=== PATIENT | female | born 1955 | race Caucasian/White ===

== ENCOUNTER → 2018-12-29 | Outpatient (CLI) | payer OTHER ==
[~2018-12-29] MED LIST: FISH OIL 1,001000 M2 PO; FLEXERIL PO; GLUCOPHAGE500 MG PO; HYDROCODONE-IB1 EACH PO; HYDROXYZINE HCL10 M2 PO; LOVASTAT40 PO; MOBIC15 MG; NORCO 5-325 TA1 EACH PO; PRESERVISION T1 EACH PO; PROZAC 20 MG20 M1; PROZAC20 MG PO; UNICOMPLEX M TA1 TA1 PO; VITAMIN B-1100 M1 PO; VITAMIN B-12500 MCG PO; VITAMINC500 PO; XANAX 0.5 MG0.5 MG; XANAX1 MG PO; ZOFRAN4 MG PO
== END ==
LOC: M.RAD 15:57
DX: M25.562 Pain in left knee (principal)

== ENCOUNTER 2020-04-03 19:17 | Emergency (ER) | payer OTHER ==
[~2020-04-03] VITALS: Ht 172.7 cm; Wt 72.1 kg
[2020-04-03] MEDS ORDERED: NORCO 5-325 TA1 EAC1 PO (19:28)
[2020-04-03 19:59] LABS: ABSOLUTE BASOPHILS 0.1 thou/uL (0.0-0.2); ABSOLUTE EOSINOPHILS 0.2 thou/uL (0.0-0.7); ABSOLUTE LYMPHOCYTES 2.8 thou/uL (0.8-5.3); ABSOLUTE MONOCYTES 0.5 thou/uL (0.0-1.2); ABSOLUTE NEUTROPHILS 5.1 thou/uL (1.6-8.1); BASOPHILS 1.1 %; EOSINOPHILS 1.9 %; HEMATOCRIT 40.6 % (37.0-47.0); HEMOGLOBIN 14.6 gm/dL (12.0-15.0); LYMPHOCYTES 32.7 %; MCH 35.5 pg (26.0-34.0); MCV 98.5 fL (80.0-100.0); MONOCYTES 5.8 %; MPV 8.2 fl. (7.2-11.1); NUCLEATED RBCS 0 /100WBC; PLATELET COUNT* 217 thou/uL (150-400); POLYS 58.5 %; RBC 4.12 mil/uL (4.20-5.00); RDW-CV 12.3 % (10.5-14.5); WBC 8.7 thou/uL (4.0-11.0)
[2020-04-03 20:06] LABS: CALCIUM 9.1 mg/dL (8.5-10.1); CREATININE 1.1 mg/dL (0.6-1.3); POTASSIUM 3.8 mmol/L (3.5-5.1)
[2020-04-03 20:10] LABS: ALBUMIN 3.7 g/dL (3.4-5.0); TOTAL BILIRUBIN 1.1 mg/dL (<0.1-1.0); TOTAL PROTEIN 7.5 g/dL (6.4-8.2)
[2020-04-03] MEDS ORDERED: VISTARIL 25 MG25 M1 PO (21:12)
[2020-04-03] MEDS ORDERED: MEDROLDOSEPACK PO (21:12)
[2020-04-03] MEDS ORDERED: PEPCID40 MG PO (21:15)
[2020-04-03 21:55] VITALS: BP 135/70
== END 2020-04-03 21:56 | disposition home or self-care (01) ==
LOC: M.ERS 19:17
PROVIDERS: Personal Emergency Response Attendant
DX: T78.40XA Allergy, unspecified, initial encounter (principal); L02.11 Cutaneous abscess of neck; E11.9 Type 2 diabetes mellitus without complications; E78.00 Pure hypercholesterolemia, unspecified; Z90.49 Acquired absence of other specified parts of digestive tract; Z79.899 Other long term (current) drug therapy; Z91.040 Latex allergy status; X58.XXXA Exposure to other specified factors, initial encounter

== ENCOUNTER 2020-04-05 08:38 | Emergency (ER) | payer OTHER ==
[~2020-04-05] VITALS: Ht 167.6 cm; Wt 69.8 kg
[~2020-04-05 08:38] MED LIST changes: +MEDROLDOSEPACK PO; +NORCO 5-325 TA1 EAC1 PO; +PEPCID40 MG PO; +VISTARIL 25 MG25 M1 PO
[2020-04-05] MEDS ORDERED: BACTRIM DS TAB1 EACH PO (09:48)
[2020-04-05] MEDS ORDERED: NORCO 5-325 TA1 EAC1 PO (09:48)
[2020-04-05] MEDS ORDERED: KEFLEX500 M1 PO (09:48)
[2020-04-05 11:04] VITALS: BP 131/61
== END 2020-04-05 11:06 | disposition home or self-care (01) ==
LOC: M.ERS 08:38
DX: L03.221 Cellulitis of neck (principal); E11.9 Type 2 diabetes mellitus without complications; E78.00 Pure hypercholesterolemia, unspecified; Z91.040 Latex allergy status